=== PATIENT | female | born 1995 | race Caucasian/White ===

== ENCOUNTER 2019-01-17 23:40 | Emergency (ER) | payer SELFPAY ==
[~2019-01-17] VITALS: Wt 61.4 kg
[2019-01-17 23:42] VITALS: BP 120/60; PULSE 61; RESP 18
[2019-01-18] MEDS ORDERED: KETOROLAC 60 MG INJ IM STA (00:48)
--- NOTE | 2019-01-18 00:56 | ERD ---
ER Documentation Chief Complaint Chief Complaint DENTAL PAIN X'S 1 WEEK HPI 23-year-old female presents today with dental pain for the past week. States that she is waiting to get her wisdom teeth removed but until then she is experiencing a lot of pain. She went to her dentist this morning and they gave her a prescription for Tylenol with codeine but she states that it is not been effective in helping the pain. Denies any fevers, chills, trismus, drooling. Denies past medical history. Denies allergies. Denies medications. Denies surgeries. Denies alcohol, tobacco, drug use. Up to date on vaccines. ROS All systems reviewed and are negative except as per history of present illness. PMhx/Soc Medical and Surgical Hx: pt denies Medical Hx, pt denies Surgical Hx History of Surgery: No Anesthesia Reaction: No Hx Neurological Disorder: No Hx Respiratory Disorders: No Hx Cardiac Disorders: No Hx Psychiatric Problems: No Hx Miscellaneous Medical Probl: No Hx Alcohol Use: No Hx Substance Use: No Hx Tobacco Use: No FmHx Family History: No diabetes, No coronary disease, No other Physical Exam Vitals Vital Signs Date Temp Pulse Resp B/P (MAP) Pulse Ox O2 O2 Flow FiO2 Time Delivery Rate 01/17/19 97.8 61 18 120/60 100 23:42 (80) Physical Exam Const: No acute distress Head: Atraumatic Eyes: Normal Conjunctiva ENT: Normal External Ears, Nose and Mouth. Gingiva and teeth is normal without any lesions or abscesses noted. Neck: Full range of motion. No meningismus. Resp: Clear to auscultation bilaterally Cardio: Regular rate and rhythm, no murmurs Abd: Soft, non tender, non distended. Normal bowel sounds Skin: No petechiae or rashes Back: No midline or flank tenderness Ext: No cyanosis, or edema Neur: Awake and alert Psych: Normal Mood and Affect Results 24 hrs Current Medications Medications Dose Sig/Gil Start Time Status Last (Trade) Ordered Route PRN Stop Time Admin Dose Reason Admin Ketorolac 60 mg ONCE STAT 01/18/19 DC Tromethamine IM 00:48 (Toradol) 01/18/19 00:49 Procedures/MDM 23-year-old female presents today with dental pain for the past week. States that she is waiting to get her wisdom teeth removed but until then she is experiencing a lot of pain. She went to her dentist this morning and they gave her a prescription for Tylenol with codeine but she states that it is not been effective in helping the pain. Denies any fevers, chills, trismus, drooling. Denies past medical history. Denies allergies. Denies medications. Denies surgeries. Denies alcohol, tobacco, drug use. Up to date on vaccines. Patient given Toradol in the ER and short course of [place] as prescription. No low suspicion for periapical abscess, Donovan's angina, or other emergent condition. Patient discharged with strict ER precautions. Patient advised to follow up with PMD. All questions answered at discharge. Departure Diagnosis: Primary Impression: Toothache Condition: Stable ROJELIO GUERRERO Jan 18, 2019 00:56
[2019-01-18] MEDS ORDERED: IBUP-1542 PO (00:57)
[2019-01-18] MEDS ORDERED: HYDR-4011 PO ×2 (00:57→00:59)
== END 2019-01-18 01:47 | disposition home or self-care (01) ==
LOC: FTE 23:40
DX: K08.89 Other specified disorders of teeth and supporting structures (principal)
CPT/HCPCS: 81025; 96372; 99284; J1885